=== PATIENT | female | born 1985 | race Caucasian/White ===

== ENCOUNTER 2024-03-01 19:07 | Emergency (ER) | payer SELFPAY ==
[~2024-03-01] VITALS: Ht 160 cm; Wt 77.1 kg
[2024-03-01 19:15] VITALS: BP_SYST 143; PULSE 83; RESP 18; TEMP 97.5; O2SAT 97
[2024-03-01 19:36] VITALS: BP_SYST 143; PULSE 83; RESP 18; TEMP 97.5; O2SAT 97
== END 2024-03-01 19:34 ==
LOC: SED 19:07
DX: F10.129 Alcohol abuse with intoxication, unspecified (principal); I10 Essential (primary) hypertension; Y90.9 Presence of alcohol in blood, level not specified
CPT/HCPCS: 99283